=== PATIENT | female | born 1970 | race Caucasian/White ===

== ENCOUNTER 2018-11-27 11:51 | Day surgery (SDC) | payer OTHER, SELFPAY ==
[2018-11-26 09:16] VITALS: BMI 28.8
[2018-11-27 12:27] VITALS: BP 123/78; PULSE 55; RESP 15; TEMP 36.1; O2SAT 100; BMI 28.8
[2018-11-27] MEDS: LACTATED RINGERS 1,000 ML 42 ML IV (12:39)
--- NOTE | 2018-11-27 13:34 | PM.PREOP ---
Pre-operative Note Interval Note History & Physical reviewed/Exam performed by Physician: Yes Changes to H&P: No
--- NOTE | 2018-11-27 13:49 | PM.OP.1 ---
Operative Date/Time/Diagnoses Date of procedure: 11/27/18 Time of procedure: 13:49 Pre-op diagnosis: Left foot bunion and bunionette Post-op diagnosis: same Procedure & Clinicians Procedure: Left foot bunionectomy with distal metatarsal osteotomy Left fifth metatarsal (tailor's) bunionectomy Same procedure as scheduled: Yes Indications: Pain and difficulty wearing shoes left foot Surgeon: Ramonita Tsang Click Yes if Unassisted: Yes Anesthesia Type: General Operative Notes Closure Type: primary Specimen(s): none sent Implants & Drains: Synthes 2.0 x 14 screw Applied: implant(s) Estimated Blood Loss (mL): 30 Blood products transfused: none Tourniquet time (min): 41 Procedure in detail: The patient was brought to the operating room and placed on the operating table in the supine position. Tourniquet was placed about the left ankle. Well padded appropriately aligned. After induction of general anesthesia the left foot and ankle were prepped and draped in the usual aseptic manner. The tourniquet was inflated. Incision was made over the 1st metatarsal phalangeal joint. The incision was deepened through subcutaneous tissues being careful to identify and retract all vital neurovascular structures. All bleeders were cauterized and ligated as necessary. A medial capsulotomy was performed to the 1st MTPJ exposing the enlarged medial eminence. Of note the metatarsal head showed some linear wearing of cartilage surface less than a 5th of the surface. The saw was used to resect the medial eminence. A saw was used to create a chevron-type osteotomy medial to lateral across the first metatarsal head/neck. The head was shifted and respositioned to reduce the intermetatarsal angle. Temporary fixation was used and using standard AO technique, a drill then 2.0 cortical screw was placed across the osteotomy. Temporary fixation was then removed. This was reviewed on C-arm showing good placement and closure of the osteotomy. A saw was used to resect the medial first metatarsal shaft redundant overhang. A rasp was used to reduce the sharp edges of the bone. The area was irrigated with copious amounts normal sterile saline. Once this was loaded it would appear that there did not need to be a distal metatarsal osteotomy or phalangeal osteotomy and instead capsule balancing techniques with the soft tissue were appropriate. The great toe was placed in alignment and the medial 1st MTP capsule was resected and closed with Vicryl. Next, an incision was made over the 5th metatarsal phalangeal joint. The incision was deepened through subcutaneous tissues being careful to identify and retract all vital neural and vascular structures. All bleeders were cauterized and ligated as necessary. The 5th MTPJ capsule was incised and this exposed the underlying enlarged 5th metatarsal lateral eminence. A saw was used to reduce this and the rasp was used to gently smooth the edges of the resection. The area was irrigated with copious amounts of normal sterile saline. Capsule closure was performed using 4 0 Vicryl. The tourniquet was deflated. A prompt hyperemic response was seen to the ft. Subcutaneous closure to both incisions was performed using Vicryl and nylon to the skin. A sterile lightly compressive dressing was placed on the foot. Pt was then placed in a postoperative boot and transferred to PACU with vital signs stable and vascular status intact to the foot. Complications: none Condition: stable Disposition: PACU Plan for aftercare: Following a period of postoperative monitoring, the patient be discharged home on written and oral postoperative instructions including keeping the dressing dry and intact, nonweightbearing to the foot, icing and elevating the foot when seated home. DVT prevention techniques have been reviewed. For the 1st postoperative visit the dressing will be changed, and close to the 4th postoperative week we will likely allow weightbearing once x-rays show appropriate healing.
[2018-11-27] MEDS: CLINDAMYCIN 600 MG/50 ML PIGGYBACK 50 MG IV (13:56)
--- NOTE | 2018-11-27 14:26 | SUR.OPER ---
Supine on padded OR bed, head on pillow, arms secured on padded arm boards at <90 degrees abduction, legs uncrossed, safety belt at thigh, tape over blanket over lower non operative leg, operative leg prepped and draped free.
[2018-11-27] MEDS: BUPIVACAINE 0.5% (PF) VIAL 30 ML INJ (14:52)
[2018-11-27 15:42] VITALS: BP 116/72; PULSE 60; RESP 8; TEMP 36.4; O2SAT 99
[2018-11-27 15:46] VITALS: BP 118/72; PULSE 56; RESP 11; O2SAT 99
[2018-11-27 15:51] VITALS: BP 118/63; PULSE 58; RESP 10; O2SAT 99
[2018-11-27 15:56] VITALS: BP 118/70; PULSE 52; RESP 14; O2SAT 97
[2018-11-27 16:03] VITALS: BP 120/65; PULSE 50; RESP 12; O2SAT 98
== END 2018-11-27 16:34 | disposition home or self-care (01) ==
PROVIDERS: Visit Provider Podiatrist
PROC: 0QBP0ZZ Excision of Left Metatarsal, Open Approach (ICD-10-PCS; CPT 28292; principal; 2018-11-27 13:15)
DX: M20.12 Hallux valgus (acquired), left foot (principal); M21.622 Bunionette of left foot; M21.42 Flat foot [pes planus] (acquired), left foot; F41.9 Anxiety disorder, unspecified
CPT/HCPCS: 28296; 28110; J1100; J1885; J2250; J2405; J2704; J3010